=== PATIENT | female | born 1935 | race Caucasian/White ===

== ENCOUNTER 2016-06-19 16:05 | Outpatient (CLI) | END 2016-06-19 16:06 | disposition home or self-care (01) ==

== ENCOUNTER 2016-07-08 12:15 | Outpatient (CLI) | payer MEDICARE, OTHER | END 2016-07-08 12:16 | disposition home or self-care (01) | DX: K70.31 Alcoholic cirrhosis of liver with ascites (principal) ==

== ENCOUNTER 2016-08-05 | Outpatient (CLI) | payer MEDICARE, OTHER | END 2016-08-05 23:45 | disposition short-term general hospital (02) | CPT/HCPCS: A0425; A0429 ==

== ENCOUNTER 2016-08-08 | Outpatient (CLI) | payer MEDICARE, OTHER | END 2016-08-09 15:51 | disposition short-term general hospital (02) | CPT/HCPCS: A0425; A0429 ==

== ENCOUNTER 2016-11-03 11:15 | Outpatient (CLI) | payer MEDICARE, OTHER | END 2016-11-03 11:16 | disposition short-term general hospital (02) | LOC: EMS 11:15 | PROVIDERS: ATTEND Surgery | DX: R53.83 Other fatigue (principal); R46.4 Slowness and poor responsiveness; R53.1 Weakness | CPT/HCPCS: A0425; A0429 ==

== ENCOUNTER 2016-11-05 10:35 | Outpatient (CLI) | payer MEDICARE, OTHER | END 2016-11-05 10:36 | disposition short-term general hospital (02) | LOC: EMS 10:35 | PROVIDERS: ATTEND Surgery | DX: R53.1 Weakness (principal); R53.83 Other fatigue | CPT/HCPCS: A0425; A0429 ==

== ENCOUNTER 2016-11-30 22:17 | Outpatient (CLI) | payer MEDICARE, OTHER | END 2016-11-30 22:18 | disposition short-term general hospital (02) | LOC: EMS 22:17 | PROVIDERS: ATTEND Surgery | DX: R40.4 Transient alteration of awareness (principal) | CPT/HCPCS: A0425; A0427 ==